=== PATIENT | female | born 1995 | race Caucasian/White ===

== ENCOUNTER 2017-03-20 19:43 | Emergency (ER) | payer MEDICAID ==
[2017-03-20 19:53] VITALS: BP 118/72; PULSE 69; RESP 16; TEMP 97.3; O2SAT 99
--- NOTE | 2017-03-20 21:05 | ED PDOC ---
HPI: Back Time Seen by Provider: 03/20/17 20:07 Chief Complaint (Nursing): Hip Pain Chief Complaint (Provider): Back Pain History Per: Patient History/Exam Limitations: no limitations Onset/Duration Of Symptoms: Other (5 months) Current Symptoms Are (Timing): Still Present Additional Complaint(s): Nandini Otero is a 21 year old female with no significant past medical history who presents to the ED complaining of right sided lower back pain which radiates down into her right leg x4 days. Patient describes pain as sharp and throbbing. She notes pain began after after lifting something heavy approximately 5 months ago. She notes pain worsens with movement and walking. She denies bladder or bowel dysfunction, dysuria, or fever. She states she went to Urgent Care where she was given an X-Ray and was reportedly told she had a right "hip dislocation" and needed to follow up. 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 Barlow, last week and was told she has a retro-positioning of her femur head and advised to attend physical therapy or receive injections in her back if the physical therapy did not provide relief. Patient states she works 2 jobs and is unable to attend her physical therapy appointments and presents for this reason. Denies taking any medication for her symptoms. She currently denies any hip pain. [facility] 02/20/17. PMD: Mary Barahona Past Medical History Reviewed: Historical Data, Nursing Documentation, Vital Signs Vital Signs: Last Vital Signs Temp 97.3 F L 03/20/17 19:48 Pulse 69 03/20/17 19:48 Resp 16 03/20/17 19:48 BP 118/72 03/20/17 19:48 Pulse Ox 99 03/20/17 19:48 - Medical History PMH: Asthma - Family History Family History: States: Unknown Family Hx - Immunization History Hx Tetanus Toxoid Vaccination: No - Home Medications Home Medications: Ambulatory Orders Medication Instructions Recorded Cephalexin [cephalexin] 500 mg PO 14 #0 cap 10/24/15 Clotrimazole 1% Vaginal [Lotrimin 1 applic VG DAILY #1 tube 10/24/15 1% Vaginal] Clindamycin [Cleocin] 300 mg PO Q8 #21 cap 11/08/15 Oseltamivir Phosphate [Tamiflu] 75 mg PO BID #10 capsule 02/15/16 Acetaminophen [Tylenol 325mg tab] 650 mg PO QID #25 tab 03/20/17 Cyclobenzaprine [Cyclobenzaprine 5 mg PO TID #15 tab 03/20/17 HCl] Ibuprofen [Advil] 400 mg PO QID #25 tab 03/20/17 - Allergies Allergies/Adverse Reactions: Allergies Allergy/AdvReac Type Severity Reaction Status Date / Time No Known Allergies Allergy Verified 10/24/15 17:11 Review of Systems ROS Statement: Except As Marked, All Systems Reviewed And Found Negative Constitutional: Negative for: Fever Gastrointestinal: Negative for: Constipation Genitourinary Female: Negative for: Dysuria, Frequency, Incontinence Musculoskeletal: Positive for: Back Pain (right sided, lower), Leg Pain (right leg, radiating from back) Physical Exam - Reviewed Nursing Documentation Reviewed: Yes Vital Signs Reviewed: Yes - Physical Exam Appears: Positive for: Well, No Acute Distress Head Exam: Positive for: ATRAUMATIC Skin: Positive for: Normal Color. Negative for: Rash Eye Exam: Positive for: Normal appearance Back: Positive for: Vertebral Tenderness (Point tenderness at right SI joint, no midline tenderness. ) Extremity: Positive for: Normal ROM (flexion and extension intact), Tenderness ( right buttock and right leg) Neurologic/Psych: Positive for: Alert, Oriented (x3) - ECG O2 Sat by Pulse Oximetry: 99 (RA) Pulse Ox Interpretation: Normal Medical Decision Making Medical Decision Making: Time: 20:08 Initial Impression: Back pain Plan: --Motrin 400 mg PO --Reevaluation On reevaluation, patient resting comfortably in no acute distress. Patient advised to follow up with PT as prescribed by her orthopedist, and return to the ED for any worsening or change in symptoms. She expresses understanding and agreement. Patient ambulated in ED with steady gait. Scribe Attestation: Documented by Rafael Putnam, acting as a scribe for Sierra Nielson PA-C Provider Scribe Attestation: All medical record entries made by the Scribe were at my direction and personally dictated by me. I have reviewed the chart and agree that the record accurately reflects my personal performance of the history, physical exam, medical decision making, and the department course for this patient. I have also personally directed, reviewed, and agree with the discharge instructions and disposition. Disposition - Clinical Impression Clinical Impression: Back pain, Lumbar radiculopathy - Patient ED Disposition Is Patient to be Admitted: No Counseled Patient/Family Regarding: Diagnosis, Need For Followup, Rx Given - Disposition Referrals: [facility] [Outside] Crowin Alex MD [Medical Doctor] - Disposition: Routine/Home Disposition Time: 21:23 Condition: STABLE Additional Instructions: Take medication as prescribed, and follow up with PT. Return for any worsening or change in symptoms. Prescriptions: Acetaminophen [Tylenol 325mg tab] 650 mg PO QID #25 tab Cyclobenzaprine [Cyclobenzaprine HCl] 5 mg PO TID #15 tab Ibuprofen [Advil] 400 mg PO QID #25 tab Instructions: Back Pain (ED), Lumbar Radiculopathy (ED) Forms: [employer] (Kinyarwanda) Print Language: DIVEHI
== END 2017-03-20 21:29 | disposition home or self-care (01) ==
LOC: H.ER 19:43
DX: M54.16 Radiculopathy, lumbar region (principal); J45.909 Unspecified asthma, uncomplicated